=== PATIENT | female | born 1945 | race Caucasian/White ===

== ENCOUNTER 2018-10-28 17:11 | Emergency (ER) | payer MEDICARE ==
[2018-10-28] MEDS ORDERED: MORPHINE SULFATE 4 MG INJ IM ONE (17:41)
[2018-10-28] MEDS ORDERED: Phenergan 25 MG INJ IM ONE (17:42)
--- NOTE | 2018-10-28 17:42 | ERPHSYRPT ---
- History of Present Illness Time Seen by Provider: 10/28/18 17:35 Source: patient Patient Subjective Stated Complaint: Left buttock pain that radiates down the left leg, denies numbness or tingling, rates pain 9/10, pt stated that the pain had initially started in her lower medial back over 2 weeks ago Triage Nursing Assessment: Pt was brought in by wheel chair, pulses normal, vitals wnl, rates pain 9/10, no difficulties with lower strength Physician History: PATIENT WITH A HISTORY OF LUMBAR DEGENERATIVE DISC DISEASE, COMPLAINS OF LEFT LOWER BACK PAIN WITH SHARP PAINS RADIATING DOWN BACK OF HER LEFT LEG OVER THE PAST 3 WEEKS. DENIES TRAUMA, INJURY, HEAVY LIFTING, LOSS OF BOWEL OR BLADDER FUNCTIONS. Timing/Duration: week(s) Method of Injury: other (DENIES TRAUMA OR INJURY) Back Pain Location: lumbar spine Back Pain Radiation: lower legs Severity of Pain-Max: moderate Severity of Pain-Current: moderate Modifying Factors: Improves With: movement Associated Symptoms: lower back pain, muscle spasms Previous symptoms: same symptoms as today (EVALUATED BY PAIN SPECIALIST IN THE PAST AND TREATED WITH EPIDURAL STEROIDS) Allergies/Adverse Reactions: No Known Drug Allergies Allergy (Verified 10/28/18 17:33) Home Medications: Lisinopril 40 mg PO DAILY 10/28/18 [History] Meloxicam 15 mg PO DAILY 10/28/18 [History] Omeprazole Magnesium [Prilosec Otc] 20 mg PO DAILY 10/28/18 [History] - Review of Systems Constitutional: No Fever, No Chills Eyes: No Symptoms Ears, Nose, & Throat: No Symptoms Respiratory: No Symptoms, No Cough, No Dyspnea Cardiac: No Symptoms, No Chest Pain, No Edema, No Syncope Abdominal/Gastrointestinal: No Symptoms, No Abdominal Pain, No Nausea, No Vomiting, No Diarrhea Genitourinary Symptoms: No Symptoms, No Dysuria Musculoskeletal: No Back Pain, No Neck Pain Skin: No Rash Neurological: No Symptoms, No Dizziness, No Focal Weakness, No Sensory Changes Psychological: No Symptoms Endocrine: No Symptoms All Other Systems: Reviewed and Negative - Past Medical History Pertinent Past Medical History: Yes Cardiac History: Hypertension Musculoskeletal History: Arthritis GI Medical History: GERD Other Medical History: melanoma - Past Surgical History Past Surgical History: Yes Musculoskeletal: Orthopedic Surgery Female Surgical History: Section, Tubal Ligation Other Surgical History: knee meniscus, hip for bone spurs, both breasts removed all the milk glands - Social History Smoking Status: Never smoker Exposure to second hand smoke: No Drug Use: none Patient Lives Alone: No - Female History Hx Now: No - Nursing Vital Signs Nursing Vital Signs: Initial Vital Signs Temperature 97.8 F 10/28/18 17:20 Pulse Rate 100 H 10/28/18 17:20 Blood Pressure 142/82 10/28/18 17:20 O2 Sat by Pulse Oximetry 95 10/28/18 17:20 Pain Scale Pain Intensity [Left Lower 9 Sacrum] Pain Intensity 9 - Physical Exam General Appearance: mild distress Eye Exam: PERRL/EOMI, eyes nml inspection Neck Exam: normal inspection, non-tender, supple, full range of motion, No meningismus, No midline tenderness Respiratory Exam: normal breath sounds, lungs clear, No respiratory distress Cardiovascular Exam: regular rate/rhythm, normal heart sounds Gastrointestinal Exam: soft, normal bowel sounds, No tenderness, No mass Back Exam: normal inspection, decreased range of motion, muscle spasm, point tenderness (TENDERNESS LEFT SACROILIAC JOINT SPACE. 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, normal mood/affect, nml station & gait, sensation nml, No motor deficits Skin Exam: normal color, warm, dry, No rash SpO2: 95 Ordered Tests: Active Orders 24 hr Category Date Time Status Urinalysis with Microscopy Stat Lab 10/28/18 18:18 Completed Medication Summary Discontinued Medications Generic Name Dose Route Start Last Admin Trade Name Derikq PRN Reason Stop Dose Admin Morphine Sulfate 4 mg 10/28/18 17:41 10/28/18 17:57 Morphine Sulfate 4 Mg Inj IM 10/28/18 17:42 4 mg STAT ONE Administration Morphine Sulfate Confirm 10/28/18 17:51 Morphine Sulfate 4 Mg Inj Administered 10/28/18 17:52 Dose 4 mg .ROUTE .STK-MED ONE Promethazine HCl 12.5 mg 10/28/18 17:42 10/28/18 17:57 Phenergan 25 Mg Inj IM 10/28/18 17:43 12.5 mg STAT ONE Administration Promethazine HCl Confirm 10/28/18 17:50 Phenergan 25 Mg Inj Administered 10/28/18 17:51 Dose 25 mg .ROUTE .STK-MED ONE Lab/Rad Data: Laboratory Results 10/28/18 Range/Units 18:18 Urine Color YELLOW (YELLOW) Urine Appearance CLEAR (CLEAR) Urine pH 5.0 (5-6) Ur Specific [place] 1.031 (1.005-1.025) Urine Protein NEGATIVE (Negative) Urine Ketones TRACE (NEGATIVE) Urine Blood NEGATIVE (0-5) Rafael/ul Urine Nitrite NEGATIVE (NEGATIVE) Urine Bilirubin NEGATIVE (NEGATIVE) Urine Urobilinogen NEGATIVE (0-1) mg/dL Ur Leukocyte Esterase NEGATIVE (NEGATIVE) Urine WBC (Auto) 3-5 (0-5) /HPF Urine RBC (Auto) NONE (0-2) /HPF U Epithel Cells (Auto) RARE (FEW) /HPF Urine Bacteria (Auto) NONE (NEGATIVE) /HPF Urine Mucus (Auto) SLIGHT (NEGATIVE) /HPF Urine Glucose >=500 (NEGATIVE) mg/dL - Progress Progress: improved, pain not gone completely Progress Note: 10/28/18 17:49 ADMINISTERED MORPHINE 4MG/PHENERGAN 12.5MG IM Counseled pt/family regarding: diagnosis, need for follow-up - Departure Departure Disposition: Home Clinical Impression: DEGENERATIVE DISC DISEASE WITH SCIATICA Condition: Stable Critical Care Time: No Referrals: GIGI ADHIKARI [Primary Care Provider] - Additional Instructions: NORFLEX 100MG TWICE DAILY FOR MUSCLE SPASM FOR 5 DAYS. ULTRAM 50MG EVERY 6-8 HOURS NEEDED FOR PAIN. CONSULT YOUR PRIMARY CARE PROVIDER FOR EVALUATION, MRI SCANS, PHYSICAL THERAPY AND REFERRAL TO PAIN SPECIALIST.
[2018-10-28] MEDS ORDERED: Phenergan 25 MG INJ ONE (17:50)
[2018-10-28] MEDS ORDERED: MORPHINE SULFATE 4 MG INJ ONE (17:51)
[2018-10-28 18:26] LABS: Appearance CLEAR (CLEAR); Bilirubin NEGATIVE (NEGATIVE); Blood NEGATIVE Ery/ul (0-5); Epithelial Cells RARE /HPF (FEW); Glucose >=500 mg/dL (NEGATIVE); Ketones TRACE (NEGATIVE); Leukocyte Esterase NEGATIVE (NEGATIVE); Mucus SLIGHT /HPF (NEGATIVE); Nitrite NEGATIVE (NEGATIVE); Protein,Urine Dip NEGATIVE (Negative); Specific Gravity 1.031 (1.005-1.025); Urobilinogen NEGATIVE mg/dL (0-1)
[2018-10-28 18:52] VITALS: BP 131/81; PULSE 93; O2SAT 96
== END 2018-10-28 18:51 | disposition home or self-care (01) ==
LOC: ED 17:11
DX: M51.17 Intervertebral disc disorders with radiculopathy, lumbosacral region (principal); Z79.899 Other long term (current) drug therapy
CPT/HCPCS: 81001; 96372; 99284; J2270; J2550